=== PATIENT | male | born 1990 | race Caucasian/White ===

== ENCOUNTER 2019-05-04 11:12 | Emergency (ER) | payer SELFPAY ==
[2019-05-04 11:15] VITALS: BP 148/99; PULSE 98; RESP 17; TEMP 36.1; O2SAT 97; BMI 34.5
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
[2019-05-04] MEDS: HYDROcodone Bitartrate/Apap 5/325 Tablet PO (12:03)
[2019-05-04 12:51] VITALS: BP 127/66; PULSE 61; RESP 15; O2SAT 98
== END 2019-05-04 12:53 | disposition home or self-care (01) ==
PROVIDERS: Emergency Provider Emergency Medicine
DX: S93.402A Sprain of unspecified ligament of left ankle, initial encounter (principal); S06.9X9A Unspecified intracranial injury with loss of consciousness of unspecified duration, initial encounter; V86.99XA Unspecified occupant of other special all-terrain or other off-road motor vehicle injured in nontraffic accident, initial encounter; Y93.I9 Activity, other involving external motion; Y92.9 Unspecified place or not applicable; Y99.8 Other external cause status
CPT/HCPCS: 70450; 73610; 99283

== ENCOUNTER 2022-08-09 08:17 | Emergency (ER) | payer OTHER, SELFPAY ==
[2022-08-09 08:18] VITALS: BP 156/104; PULSE 89; RESP 18; TEMP 36.1; O2SAT 98; BMI 40.4
[2022-08-09] MEDS: DiphenhydrAMINE 50 MG/ML Syringe 25 MG IV (09:07)
[2022-08-09] MEDS: Metoclopramide 10 MG/2 ML Vial IV (09:07)
[2022-08-09] MEDS: Ketorolac 15 MG/ML Vial IV (09:07)
[2022-08-09 09:22] LABS: Absolute Lymphocyte Count 2.43 X10^3/uL (0.83-4.51); Absolute Neutrophil Count 7.7 X10^3/uL (2.0-7.7); Basophil# 0.13 X10^3/uL; Basophil% 1.1 % (0-1); Eosinophils% 5.1 % (0-5); Hematocrit 46.3 % (40-54); Hemoglobin 16.1 g/dL (13.0-16.5); Lymphocyte # 2.43 X10^3/ul (0.83-4.51); Lymphocyte % 20.8 % (19-41); Mean Corp Hgb Conc 34.8 g/dL (32-36); Mean Corpuscular Hgb 32.3 pg (27.0-32.0); Mean Platelet Vol. 10.1 fl (6.2-12.0); Monocyte# 0.73 X10^3/uL; Monocyte% 6.3 % (0-10); NRBC Flagged by Analyzer 0 % (0-5); Neutrophil % 66.1 % (47-70); Platelet Count 362 K/mm3 (150-450); RBC Distribution Width CV 12.3 % (11.6-14.6); RBC Distribution Width SD 42.2 fl (35.1-43.9); Red Blood Count 4.98 M/mm3 (4.6-6.2); White Blood Count 11.7 K/mm3 (4.4-11.0)
--- NOTE | 2022-08-09 09:22 | EX.ED.VIS.HA ---
HPI History of Present Illness Chief Complaint: Headache Detail of Chief Complaint: Bilateral headache Informant: patient and spouse/S.O. Onset/Context/Timing Onset: Days (On onset Saturday) Timing: Continuous Quality -Headache: Positive for Dull; Negative for Similar Prior Headaches, Sharp, Throbbing, Tightness or Burning Location: Bilateral Current Severity: Moderate Maximum Severity: Severe Worsened by: Sound, light Relieved by: Nothing Associated Symptoms/Injury Associated Symptoms: Positive for Nausea, Blurred Vision (Intermittent and bilateral) and Photophobia; Negative for Fever, Vomiting, Sore Throat, Sinus Pressure, Numbness, Tingling, Preceding Aura, Visual Changes or Visual Loss Injury - DRAKE: Negative for Direct Trauma Narrative Narrative: Patient is a 32-year-old male who has not seen a physician in years who presents with bilateral headache that started Saturday. The headache is worse with sound and light. He denies fever, chills night sweats. He is complained of intermittent bilateral blurred vision. He presently denies change in vision. He denies rhinorrhea, congestion, postnasal drip or sore throat. He does complain of neck pain but does not have neck stiffness. He denies cardiac or respiratory symptoms. He does report nausea without vomiting diarrhea. He denies urologic symptoms. He denies paresthesia, anesthesia or motor weakness. He denies problems with balance or coordination. There is no family history of subarachnoid hemorrhage or aneurysms. Prior similar symptoms: No Recent Illness/Hospitalization: No PFSH PFSH Medical History no medical history no medical history Allergy/AdvReac Type Severity Reaction Status Date / Time No Known Allergies Allergy Verified 08/09/22 08:20 Surgical History no surgical history no surgical history Social History (Updated 08/09/22 @ 09:[address] Remington Berry MD) household members: significant other and children Smoking Status: Never smoker alcohol intake: current alcohol intake frequency: holidays/special occasions only substance use type: does not use ROS ROS ED Constitutional Constitutional ED: Denies chills, fever(s), subjective, sweats or weight loss Eyes Eyes: Reports blurry vision bilateral; Denies change in vision or diplopia ENT ENT ED: Denies ear pain, rhinorrhea or sore throat Cardiovascular Cardiovascular: Denies chest pain, orthopnea, palpitations, paroxysmal nocturnal dyspnea or racing heartbeat Respiratory/Chest Respiratory/Chest: Denies cough, dyspnea, dyspnea on exertion, orthopnea or paroxysmal nocturnal dyspnea Gastrointestinal Gastrointestinal: Denies abdominal pain, diarrhea, melena, nausea or vomiting Genitourinary Genitourinary ED: Denies dysuria, hematuria or urinary frequency Musculoskeletal Musculoskeletal: Reports neck pain; Denies arthralgias, back pain or myalgias Integumentary Denies abscess, Abrasions or rash Neurologic Neurologic: Reports headache(s) and other Details: Further detailed HPI and ; Denies paresthesias or weakness Psychiatric Psychiatric: Denies anxiety or depression Endocrine Endocrinology: Denies polydipsia or polyuria Hematologic/Lymphatic Hematologic/Lymphatic: Denies easy bleeding or easy bruising Allergic/Immunologic Allergic/Immunologic ED: Denies mouth swelling, tongue swelling or urticaria EXAM Physical Exam Const Vital Signs: 08/09/22 08:18 Temperature 97 F L Temperature Source Temporal Pulse Rate 89 Respiratory Rate 18 Blood Pressure 156/104 H Blood Pressure Mean 121 Pulse Ox 98 Oxygen Delivery Method Room Air Positive well nourished and well developed Constitutional Narrative: Is entered the room patient was in supine position with lights off. General Appearance ED: well developed and NAD; Negative for pallor HEENT Reports normocephalic, TM's clear and moist mucous membranes HEENT Narrative: Nares patent. No frontal or maxillary sinus tenderness. atraumatic Tympanic Membrane ED: Yes TM's clear Eyes PERRL and EOMs intact bilaterally Eyes Narrative: There is no nystagmus. Cup-to-disc ratio is normal. There is no papilledema. There is no AV nicking. Neck no lymphadenopathy, supple, no meningeal signs and no JVD Neck Narrative: Trachea is midline. Resp normal respiratory effort and clear to auscultation bilaterally Cardio regular rate, regular rhythm, S1 normal heart sound, S2 normal heart sound and no murmurs GI non-tender and non-distended Auscultation: normoactive bowel sounds Palpation: soft Back/Spine no CVA tenderness Extremity normal to inspection and full ROM General Extremety ED: Negative for edema or tenderness General Extremity: Negative for edema Neuro oriented x3, CN's II-XII intact bilaterally and no sensory deficits noted Neuro Narrative: There is no dysmetria. There is no clonus Babinski sign right or left. [place] Coma Scale: document GCS findings Spontaneous Obeys Commands Oriented 15 Sensorium / Orientation: awake and alert Coordination / Balance: [id number] test normal Speech: speech normal Motor Exam: strength 5/5 throughout Psych mental status grossly normal Skin General Skin Exam: elasticity normal and turgor normal; Negative for jaundice or pallor Lesions: no lesions Rashes: no rashes MDM MDM MDM Narrative Medical decision making narrative: Differential diagnosis would include tension headache since he states he has 5 children they have been yelling at home. Also need to consider vascular headache, migraine, with a normal neurologic exam and no meningeal findings and no photophobia doubt meningitis, subarachnoid hemorrhage or malignancy. Since patient has not seen a physician in many years and his blood pressure is elevated blood work was obtained. Patient was treated with IV Toradol, diphenhydramine and Reglan. Will reassess and 36 minutes after medication has been given. History & Record Review Discussion w/independent historian: Patient and Significant other Additional record(s) reviewed:: No prior records Lab Data Attestation: I reviewed the patient's lab results. Lab results narrative: CBC reveals slight elevation white count otherwise unremarkable. Basic metabolic panel reveals slight elevation of glucose with normal CO2 and gap Labs: Laboratory Results - last 24 hr 08/09/22 08/09/22 09:13 09:13 WBC 11.7 H RBC 4.98 Hgb 16.1 Hct 46.3 MCV 93.0 MCH 32.3 H MCHC 34.8 RDW Std Deviation 42.2 RDW Coeff of Ezequiel 12.3 Plt Count 362 MPV 10.1 Immature Gran % (Auto) 0.600 Neut % (Auto) 66.1 Lymph % (Auto) 20.8 Harper % (Auto) 6.3 Eos % (Auto) 5.1 H Baso % (Auto) 1.1 H Absolute Neuts (auto) 7.7 Absolute Lymphs (auto) 2.43 Nucleated RBC % 0 Sodium 138 Potassium 4.0 Chloride 108 H Carbon Dioxide 25.0 Anion Gap 5 BUN 13 Creatinine 1.21 Estim Creat Clear Calc 74.83 Est GFR (MDRD) Af Amer 88 Est GFR (MDRD) Non-Af 73 BUN/Creatinine Ratio 10.7 Glucose 108 H Calcium 9.2 Treatment and Re-Evaluation Narrative: Patient was reassessed at 1052. Patient feels markedly better. Questions were answered. He was referred to Dr. João Patel since he does not have a physician. Discharge Plan Triage Chief Complaint: Headache ED Provider: Remington Berry Dx/Rx/DC Orders Clinical Impression: Acute intractable headache, Elevated BP without diagnosis of hypertension Instructions: Self-Care for Headaches, ED Hypertension, To Be Confirmed Primary Care Provider: Care Physician,No Primary Referrals: João Patel MD [Med Staff - Active Staff] - 1 Week Care Physician,No Primary [Primary Care Provider] - Disposition Disposition: Home, Self Care
[2022-08-09 09:35] LABS: Anion Gap 5 (5-15); BUN 13 mg/dL (7-18); BUN/Creat Ratio 10.7 RATIO (10-20); Calcium,Total 9.2 mg/dL (8.5-10.1); Chloride 108 mmol/L (98-107); Creatinine, Serum 1.21 mg/dL (0.70-1.30); EST Glomerular Filtration Rate 73 mL/min (>60); Est Glom Filt Rate - Afr Amer 88 mL/min (>60); Estimated Creatinine Clearance 74.83 ml/min; Glucose 108 mg/dL (74-106); Sodium Level 138 mmol/L (136-145)
[2022-08-09 10:17] VITALS: RESP 18
== END 2022-08-09 11:11 | disposition home or self-care (01) ==
PROVIDERS: Emergency Provider Emergency Medicine; Visit Provider Emergency Medicine
DX: R51.9 Headache, unspecified (principal); R03.0 Elevated blood-pressure reading, without diagnosis of hypertension
CPT/HCPCS: 80048; 85025; 96374; 96375; 99283; J7030; A4216

== ENCOUNTER → 2023-04-10 | Outpatient (CLI) | payer MEDICAID, SELFPAY ==
[2023-04-10 16:59] LABS: Absolute Lymphocyte Count 3.58 X10^3/uL (0.83-4.51); Basophil# 0.17 X10^3/uL; Basophil% 1.3 % (0-1); Eosinophil# 0.44 X10^3/uL; Eosinophils% 3.2 % (0-5); Hematocrit 47.8 % (40-54); Hemoglobin 15.9 g/dL (13.0-16.5); Lymphocyte # 3.58 X10^3/ul (0.83-4.51); Lymphocyte % 26.4 % (19-41); Mean Corp Hgb Conc 33.3 g/dL (32-36); Mean Corpuscular Hgb 31.7 pg (27.0-32.0); Mean Corpuscular Volume 95.4 fL (80-94); Mean Platelet Vol. 10.4 fl (6.2-12.0); Monocyte# 1.29 X10^3/uL; Monocyte% 9.5 % (0-10); NRBC Flagged by Analyzer 0 % (0-5); Neutrophil # 7.96 X10^3/uL (2.7-7.7); Neutrophil % 58.6 % (47-70); Platelet Count 436 K/mm3 (150-450); RBC Distribution Width CV 12.9 % (11.6-14.6); Red Blood Count 5.01 M/mm3 (4.6-6.2); White Blood Count 13.6 K/mm3 (4.4-11.0)
[2023-04-10 17:22] LABS: ALB/GLOB Ratio 1.1 RATIO (0.9-2.4); AST(SGOT) 17 U/L (15-37); Alanine Aminotransfer ALT/SGPT 56 U/L (16-61); Albumin, Serum 3.7 g/dL (3.2-5.0); Alkaline Phosphatase 78 U/L (45-117); Anion Gap 5 (5-15); BUN 18 mg/dL (7-18); Calcium,Total 9.1 mg/dL (8.5-10.1); Chloride 109 mmol/L (98-107); Cholesterol 188 mg/dL (200); Creatinine, Serum 1.29 mg/dL (0.70-1.30); EST Glomerular Filtration Rate 67 mL/min (>60); Est Glom Filt Rate - Afr Amer 82 mL/min (>60); Globulin 3.5 g/dL (2.2-4.2); Glucose 86 mg/dL (74-106); High Density Lipoprotein 37 mg/dL; Potassium 4.2 mmol/L (3.5-5.1); Protein, Total 7.2 g/dL (6.4-8.2); Sodium Level 141 mmol/L (136-145); Triglycerides 262 mg/dL; Very Low Density Lipoprotein 52 mg/dL (5-40)
--- OUTSIDE RECORDS SUMMARY | 2023-04-10 18:39 | XMS RPT_ITS | CCD ---
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 Name Role Phone Unavailable Primary Care Provider STEVEN Gibbs II Attending Shelley stephen Medications Current Medications Medication Drug Class(es) Dates Sig (Normalized) Sig (Original) tropicamide 5 mg/ml ophthalmic solution (1 source) Anticholinergic Start: 10-31-2022 End: 10-31-2022 tropicamide 0.5 % 1 Drop (MYDRIACYL) Problems Problem Classification Problem Date Documented Da te Episodic/Chronic Blindness and vision defects (4 sources) Bilateral regular astigmatism; Translations: [Regular astigmatism, bilateral] 10-31-2022 Episodic Encounters Encounter Date Encounter Type Care Provider Facility Start: 10-31-2022 End: 10-31-2022 ambulatory STEVEN VALENCIA II Facility:[facility] Start: 10-31-2022 End: 10-31-2022 Patient encounter procedure Steven Valencia OD Work Phone: Optometry Plan of Treatment Date Care Activity Detail Author Start: 10-26-2022 Influenza vaccination INFLUENZA (#1) [facility] Start: 02-25-2022 DEPRESSION ASSESSMENT DEPRESSION ASS ESSMENT [facility] Start: 06-03-2007 Urine microalbumin profile DTAP,TDAP ,TD (1 - Tdap) [facility] Start: 2006 HEPATITIS C SCREENING HEPATITIS C CYNTHIA HARDING [facility] Start: 2006 HIV SCREENING HIV SCREENING [facility] Start: 1988 COVID-19 VACCINE (#1) COVID-19 VACCI NE (#1) [facility] Start: 1988 HEPATITIS B (1 of 3 - 3-dose series) HEPATITIS B (1 of 3 - 3-dose series) [facility] Payers Date Payer Category Payer Unknown [employer] [facility] [employer] VISION [id number] 05/05/2022-Present [address] [place] [address] Indemnity [id number] 05-05-2022 Unknown [id number] Social History Date Type Detail Facility Start: 10-31-2022 Tobacco smoking stat us AKIS Never smoked tobacco [facility] Start: 10-31-2022 Tobacco use and exposure User of smo keless tobacco [facility] tobacco [facility] Start: 10-31-2022 Alcohol intake Current drinke r of alcohol (finding) [facility] Start: 10-31-2022 Alcohol Comment social [facility] Start: 1988 Sex Assigned At Not on file [facility] Gender identity Not on file [facility] inic Progress note 10-31-2022 Note Date & Type Note Facility 10-31-2022 Note HNO ID: [id number] Author: Steven Valencia II, OD Service: ? Author Type: HOSPITAL CHIEF FINANCIAL OFFICER Type: Progress Notes Filed: 10/31/2022 8:43 AM Note Text: Assessment and Plan H52.223 Regular astigmatism, bilateral (primary encounter diagnosis) H52.03 Hypermetropia, bilateral H52.31 Anisometropia Comment: Continue time study observer use of glasses to maximize visual performance. Past failure with CL's. 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 I have confirmed and edited as necessary the relevant ophthalmic history, ROS, and the neuro exam findings as obtained by others. I have seen and examined Ines Meyer Ba. I have discussed the case and the management of this patient's care with the Resident/Fellow, if applicable. I also have reviewed and agree with the assessment and plan as stated above and agree with all of its relevant components. Stevne Valencia II, OD [facility] Instructions 10-31-2022 Patient Instructions Note Date & Type Note Facility 10-31-2022 Instructions Steven Valencia II, OD - 10/31/2022 8:42 AM EDT Assessment and Plan H52.223 Regular astigmatism, bilateral (primary encounter diagnosis) H52.03 Hypermetropia, bilateral H52.31 Anisometropia Comment: Continue time study observer use of glasses to maximize visual performance. Past failure with CL's. 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 I have confirmed and edited as necessary the relevant ophthalmic history, ROS, and the neuro exam findings as obtained by others. I have seen and examined Ines Cosme. I have discussed the case and the management of this patient's care with the Resident/Fellow, if applicable. I also have reviewed and agree with the assessment and plan as stated above and agree with all of its relevant components. Steven Valencia II, OD documented in this encounter [facility] History of Present illness Narrative 10-31-2022 Steven Valencia II, OD - 10/31/2022 8:40 AM EDT Note Date & Type Note Facility 10-31-2022 History of Presen t illness Narrative Assessment and Plan H52.223 Regular astigmatism, bilateral (primary encounter diagnosis) H52.03 Hypermetropia, bilateral H52.31 Anisometropia Comment: Continue time study observer use of glasses to maximize visual performance. Past failure with CL's. 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 I have confirmed and edited as necessary the relevant ophthalmic history, ROS, and the neuro exam findings as obtained by others. I have seen and examined Ines Cosme. I have discussed the case and the management of this patient's care with the Resident/Fellow, if applicable. I also have reviewed and agree with the assessment and plan as stated above and agree with all of its relevant components. Steven Valencia II, OD documented in this encounter [facility] Evaluation note Note Date & Type Note Facility documented in this encounter [facility] Medications Administered Section Active Administered Medications - up to 3 most recent administrations Medication Order MAR Action Action Date Dose Rate Site tropicamide 0.5 % 1 Drop (MYDRIACYL) 1 Drop, BOTH EYES, DIRECTED, Starting on Sat10/31/22 at 0900, Until Sat10/31/22 at 2058, Administer for dilation Given 10/31/2022 9:00 AM EDT 1 Drop Summary Purpose Family History No Family History Records Found Advance Directives No Advanced Directives Records Found Additional Source Comments Source Comments (unrecognize d section and content) In the event this informatio n is protected by the Federal Confidentiality of Alcohol and Drug Abuse Patient Records regulations: The Federal rules restrict any use of the information to criminally investigate or prosecute any alcohol or drug abuse patient.[facility] Reason for Visit (unrecogniz ed section and content) (unrecognized sect ion and content) No Status Records Found INFORMATION SOURCE (unrecogn ized section and content) FOR RECORDS PERTAINING TO PATIENTS WHO ARE OR HAVE BEEN ENROLLED IN A CHEMICAL DEPENDENCY/SUBSTANCEABUSE PROGRAM, SOME INFORMATION MAY BE OMITTED. This clinical summary was aggregated from multiple sources. Caution should be exercised in using it in the provision of clinical care. This summary normalizes information from multiple sources, and as a consequence, information in this document may materially change the coding, format and clinical context of patient data. In addition, data may be omitted in some cases. CLINICAL DECISIONS SHOULD BE BASED ON THE PRIMARY CLINICAL RECORDS. [employer]. provides no warranty or guarantee of the accuracy or completeness of information in this document.
== END | disposition home or self-care (01) ==
PROVIDERS: PCP Family Medicine; Visit Provider Family Medicine
DX: Z00.00 Encounter for general adult medical examination without abnormal findings (principal)
CPT/HCPCS: 36415; 80053; 80061; 85025

== ENCOUNTER → 2023-04-24 | Outpatient (CLI) | payer MEDICAID, SELFPAY ==
[2023-04-24 15:44] LABS: Absolute Lymphocyte Count 2.37 X10^3/uL (0.83-4.51); Absolute Neutrophil Count 6.3 X10^3/uL (2.0-7.7); Basophil# 0.09 X10^3/uL; Basophil% 0.9 % (0-1); Eosinophil# 0.23 X10^3/uL; Eosinophils% 2.4 % (0-5); Hematocrit 45.4 % (40-54); Hemoglobin 15.3 g/dL (13.0-16.5); Lymphocyte # 2.37 X10^3/ul (0.83-4.51); Lymphocyte % 24.8 % (19-41); Mean Corp Hgb Conc 33.7 g/dL (32-36); Mean Corpuscular Hgb 31.9 pg (27.0-32.0); Mean Corpuscular Volume 94.8 fL (80-94); Monocyte# 0.56 X10^3/uL; Monocyte% 5.9 % (0-10); NRBC Flagged by Analyzer 0 % (0-5); Neutrophil # 6.28 X10^3/uL (2.7-7.7); Neutrophil % 65.8 % (47-70); Platelet Count 331 K/mm3 (150-450); RBC Distribution Width CV 12.9 % (11.6-14.6); RBC Distribution Width SD 45.3 fl (35.1-43.9); Red Blood Count 4.79 M/mm3 (4.6-6.2); White Blood Count 9.6 K/mm3 (4.4-11.0)
== END | disposition home or self-care (01) ==
LOC: BIMLAB 13:01
PROVIDERS: PCP Family Medicine; Visit Provider Family Medicine
DX: D72.829 Elevated white blood cell count, unspecified (principal)
CPT/HCPCS: 36415; 85025